=== PATIENT | female | born 1950 | race Caucasian/White ===

== ENCOUNTER 2022-02-25 22:30 | Inpatient (IN) | payer OTHER ==
[~2022-02-25] VITALS: Ht 160 cm; Wt 48.1 kg
[2022-02-25 22:30] VITALS: BP_SYST 153
[2022-02-25] MEDS ORDERED: MECLIZINE HCL 25 MG TABLET (ANITVERT) PO ONE (23:45)
[2022-02-25 23:53] LABS: EOSINOPHILS % (AUTO) 0.1 % (0.0-4.0)
[2022-02-25 23:58] LABS: BASOPHILS % (AUTO) 0.3 % (0.0-2.0); HEMATOCRIT 32.5 % (36-48); LYMPHOCYTES # (AUTO) 1.8 K/uL (1.0-5.5); LYMPHOCYTES % (AUTO) 11.7 % (20.5-51.5); MEAN CORPUSCULAR HEMOGLOBIN 28 pg (27-31); MEAN CORPUSCULAR VOLUME 77 fL (79.0-98.0); MONOCYTES # (AUTO) 1.1 K/uL (0.0-1.0); MONOCYTES % (AUTO) 7.3 % (1.7-9.3); NEUTROPHILS # (AUTO) 12.5 K/uL (1.8-7.7); NEUTROPHILS % (AUTO) 80.6 % (40.0-70.0); PLATELET COUNT (AUTO) 294 K/uL (130-430); RED BLOOD CELL COUNT(AUTO) 4.23 MIL/uL (4.2-6.2); RED CELL DISTRIBUTION WIDTH 12.8 % (9.0-15.0); WHITE BLOOD COUNT (AUTO) 15.5 K/uL (4.8-10.8)
[2022-02-25 23:59] LABS: ANION GAP 7 (5-15); CALCIUM 7.9 mg/dL (8.4-11.0); CREATININE 0.57 mg/dL (0.55-1.30); GLUCOSE 133 mg/dL (70-99); MEAN CORPUSCULAR HGB CONC 36 % (32-36); POTASSIUM 3.5 mmol/L (3.5-5.1); UREA NITROGEN, BLOOD 10 mg/dL (8-21)
[2022-02-26 00:07] LABS: ALANINE AMINOTRANSFERASE 18 U/L (12-78); ALBUMIN 3.2 g/dL (3.4-4.8); ASPARTATE AMINOTRANSFERASE 28 U/L (10-37); TOTAL BILIRUBIN 0.6 mg/dL (0.0-1.0)
[2022-02-26 00:13] LABS: CHLORIDE 76 mmol/L (98-107); SODIUM SERUM 109 mmol/L (136-145)
[2022-02-26] MEDS ORDERED: NACL 0.9% 1,000 ML IV ONE ×2 (00:15)
[2022-02-26] MEDS ORDERED: KCL 20 mEq in D5NS 1000 mL 1,000 ML IV SCH (01:00)
[2022-02-26] MEDS ORDERED: AMLO5TAB4 PO (02:22)
[2022-02-26] MEDS ORDERED: FERR15DR21 PO (02:22)
[2022-02-26] MEDS ORDERED: ZINC50TA69 PO (02:22)
[2022-02-26] MEDS ORDERED: METF-518 PO (02:22)
[2022-02-26 04:04] LABS: BILIRUBIN,URINE NEGATIVE (NEGATIVE); BLOOD, URINE NEGATIVE (NEGATIVE); CLARITY/URINE CLEAR (CLEAR); COLOR,URINE YELLOW (YELLOW); GLUCOSE,URINE NEGATIVE (NEGATIVE); KETONES,URINE NEGATIVE (NEGATIVE); LEUKOCYTE ESTERASE ,URINE NEGATIVE (NEGATIVE); NITRITE, URINE NEGATIVE (NEGATIVE); PROTEIN URINE NEGATIVE (NEGATIVE); UROBILINOGEN,URINE 0.2 (0.2-1.0)
[2022-02-26 04:23] VITALS: BP_SYST 137
[2022-02-26 06:48] LABS: BASOPHILS % (AUTO) 0.3 % (0.0-2.0); EOSINOPHILS % (AUTO) 0.3 % (0.0-4.0); HEMATOCRIT 31.9 % (36-48); HEMOGLOBIN 11.6 g/dL (12.0-16.0); LYMPHOCYTES # (AUTO) 1.6 K/uL (1.0-5.5); MEAN CORPUSCULAR HEMOGLOBIN 28 pg (27-31); MEAN CORPUSCULAR HGB CONC 36 % (32-36); MEAN CORPUSCULAR VOLUME 78 fL (79.0-98.0); MONOCYTES # (AUTO) 0.9 K/uL (0.0-1.0); MONOCYTES % (AUTO) 9.5 % (1.7-9.3); NEUTROPHILS % (AUTO) 72.9 % (40.0-70.0); PLATELET COUNT (AUTO) 276 K/uL (130-430); RED BLOOD CELL COUNT(AUTO) 4.09 MIL/uL (4.2-6.2); WHITE BLOOD COUNT (AUTO) 9.6 K/uL (4.8-10.8)
[2022-02-26 07:12] LABS: ANION GAP 7 (5-15); CALCIUM 7.6 mg/dL (8.4-11.0); CREATININE 0.56 mg/dL (0.55-1.30); GLUCOSE 99 mg/dL (70-99); POTASSIUM 3.2 mmol/L (3.5-5.1); UREA NITROGEN, BLOOD 8 mg/dL (8-21)
[2022-02-26 07:19] LABS: ALANINE AMINOTRANSFERASE 17 U/L (12-78); ASPARTATE AMINOTRANSFERASE 23 U/L (10-37); TOTAL BILIRUBIN 0.6 mg/dL (0.0-1.0)
[2022-02-26 07:40] LABS: SODIUM SERUM 119 mmol/L (136-145)
[2022-02-26 07:41] LABS: CHLORIDE 84 mmol/L (98-107)
[2022-02-26 08:00] VITALS: BP_SYST 149
[2022-02-26] MEDS: KCL 20 mEq in D5NS 1000 mL 1,000 ML IV SCH ×2 (08:25→21:02)
[2022-02-26 12:00] VITALS: BP_SYST 127
[2022-02-26] MEDS ORDERED: D5W 1,000 ML IV PRN (14:30)
[2022-02-26] MEDS ORDERED: DEXTROSE 50%-WATER 50 ML DISP.SYRIN IVP PRN (14:30)
[2022-02-26] MEDS ORDERED: GLUCOSE (DEXTROSE) ORAL GEL -Adults PO PRN (14:30)
[2022-02-26 15:39] VITALS: BP_SYST 117
[2022-02-26] MEDS ORDERED: DOCUSATE SODIUM 250 MG CAPSULE PO ONE (15:45)
[2022-02-26 20:00] VITALS: BP_SYST 122
[2022-02-26] MEDS: SENNOSIDES 8.6 MG TABLET PO SCH (20:44)
[2022-02-26] MEDS: DOCUSATE SODIUM 250 MG CAPSULE PO SCH (20:44)
[2022-02-26] MEDS: ENOXAPARIN SODIUM 40 MG/0.4 ML SYRINGE SUBCUT SCH (20:46)
[2022-02-26] MEDS: INSULIN REGULAR, HUMAN 100 UNITS/ML, 10 ML VIAL (humuLIN R) SUBCUT PRN (21:00)
[2022-02-27] VITALS: BP_SYST 118
[2022-02-27 04:11] VITALS: BP_SYST 132
[2022-02-27] MEDS: KCL 20 mEq in D5NS 1000 mL 1,000 ML IV SCH ×2 (06:57→17:24)
[2022-02-27 07:08] LABS: BASOPHILS # (AUTO) 0.1 K/uL (0.0-0.2); BASOPHILS % (AUTO) 0.7 % (0.0-2.0); EOSINOPHILS # (AUTO) 0.1 K/uL (0.0-0.4); EOSINOPHILS % (AUTO) 0.5 % (0.0-4.0); HEMATOCRIT 30.2 % (36-48); HEMOGLOBIN 10.8 g/dL (12.0-16.0); LYMPHOCYTES # (AUTO) 1.4 K/uL (1.0-5.5); LYMPHOCYTES % (AUTO) 14.8 % (20.5-51.5); MEAN CORPUSCULAR HEMOGLOBIN 29 pg (27-31); MEAN CORPUSCULAR HGB CONC 36 % (32-36); MEAN CORPUSCULAR VOLUME 80 fL (79.0-98.0); MONOCYTES % (AUTO) 10.6 % (1.7-9.3); NEUTROPHILS % (AUTO) 73.4 % (40.0-70.0); PLATELET COUNT (AUTO) 250 K/uL (130-430); RED BLOOD CELL COUNT(AUTO) 3.78 MIL/uL (4.2-6.2); RED CELL DISTRIBUTION WIDTH 13.2 % (9.0-15.0); WHITE BLOOD COUNT (AUTO) 9.5 K/uL (4.8-10.8)
[2022-02-27 07:58] LABS: ANION GAP 8 (5-15); CALCIUM 7.2 mg/dL (8.4-11.0); CHLORIDE 98 mmol/L (98-107); GLUCOSE 117 mg/dL (70-99); POTASSIUM 3.6 mmol/L (3.5-5.1); SODIUM SERUM 131 mmol/L (136-145); UREA NITROGEN, BLOOD 6 mg/dL (8-21)
[2022-02-27 08:00] VITALS: BP_SYST 142
[2022-02-27] MEDS: DOCUSATE SODIUM 250 MG CAPSULE PO SCH ×2 (08:33→20:48)
[2022-02-27] MEDS: INSULIN REGULAR, HUMAN 100 UNITS/ML, 10 ML VIAL (humuLIN R) SUBCUT PRN ×3 (12:12→20:56)
[2022-02-27 14:52] VITALS: BP_SYST 148
[2022-02-27] MEDS ORDERED: MILK OF MAGNESIA 30 ML UDC PO PRN (15:15)
[2022-02-27 20:00] VITALS: BP_SYST 131
[2022-02-27] MEDS: SENNOSIDES 8.6 MG TABLET PO SCH (20:48)
[2022-02-27] MEDS: ENOXAPARIN SODIUM 40 MG/0.4 ML SYRINGE SUBCUT SCH (20:50)
[2022-02-28] VITALS: BP_SYST 128
[2022-02-28] MEDS: KCL 20 mEq in D5NS 1000 mL 1,000 ML IV SCH ×2 (04:02→10:00)
[2022-02-28 06:48] LABS: BASOPHILS # (AUTO) 0.1 K/uL (0.0-0.2); BASOPHILS % (AUTO) 0.8 % (0.0-2.0); EOSINOPHILS # (AUTO) 0.1 K/uL (0.0-0.4); EOSINOPHILS % (AUTO) 1.6 % (0.0-4.0); LYMPHOCYTES # (AUTO) 1.6 K/uL (1.0-5.5); LYMPHOCYTES % (AUTO) 17.9 % (20.5-51.5); MEAN CORPUSCULAR HEMOGLOBIN 29 pg (27-31); MEAN CORPUSCULAR HGB CONC 36 % (32-36); MEAN CORPUSCULAR VOLUME 80 fL (79.0-98.0); MONOCYTES # (AUTO) 0.8 K/uL (0.0-1.0); MONOCYTES % (AUTO) 8.5 % (1.7-9.3); NEUTROPHILS # (AUTO) 6.4 K/uL (1.8-7.7); NEUTROPHILS % (AUTO) 71.2 % (40.0-70.0); PLATELET COUNT (AUTO) 247 K/uL (130-430); RED BLOOD CELL COUNT(AUTO) 3.86 MIL/uL (4.2-6.2); RED CELL DISTRIBUTION WIDTH 13.2 % (9.0-15.0)
[2022-02-28 07:28] LABS: ANION GAP 8 (5-15); CALCIUM 7.2 mg/dL (8.4-11.0); CHLORIDE 98 mmol/L (98-107); CREATININE 0.49 mg/dL (0.55-1.30); GLUCOSE 124 mg/dL (70-99); POTASSIUM 3.8 mmol/L (3.5-5.1); SODIUM SERUM 131 mmol/L (136-145); UREA NITROGEN, BLOOD 4 mg/dL (8-21)
[2022-02-28 08:00] VITALS: BP_SYST 165
[2022-02-28] MEDS: DOCUSATE SODIUM 250 MG CAPSULE PO SCH (09:05)
[2022-02-28] MEDS ORDERED: amLODIPine BESYLATE 10 MG TABLET PO ONE (11:00)
[2022-02-28] MEDS: INSULIN REGULAR, HUMAN 100 UNITS/ML, 10 ML VIAL (humuLIN R) SUBCUT PRN ×2 (11:12→17:23)
[2022-02-28 11:32] VITALS: BP_SYST 131
[2022-02-28 15:12] VITALS: BP_SYST 131
[2022-02-28 15:25] VITALS: BP_SYST 144
[2022-03-01] MEDS ORDERED: amLODIPine BESYLATE 10 MG TABLET PO SCH (09:00)
== END 2022-02-28 18:20 | disposition home or self-care (01) | DRG 71 ==
LOC: SED 22:30 → STU 02-26 00:58
PROVIDERS: ADMIT Family Medicine; ATTEND Family Medicine
DX: G93.41 Metabolic encephalopathy (principal); E87.1 Hypo-osmolality and hyponatremia; E11.9 Type 2 diabetes mellitus without complications; I10 Essential (primary) hypertension; K59.09 Other constipation; E87.6 Hypokalemia; Z20.822 Contact with and (suspected) exposure to COVID-19
CPT/HCPCS: 36415; 70450-TC; 71045; 76376; 80048; 80053; 81003; 82962; 83605; 83735; 83880; 84484; 85025; 87040; 93005; 96360; 96361; 99285; G0378; J1650; J1815